=== PATIENT | female | born 1985 | race African-American/Black ===

== ENCOUNTER 2020-12-21 05:15 | Emergency (ER) | payer OTHER, SELFPAY ==
--- NOTE | 2020-12-21 | ECG_ITS ---
Test Reason : CP Blood Pressure : / mmHG Vent. Rate : 051 BPM Atrial Rate : 051 BPM P-R Int : 146 ms QRS Dur : 076 ms QT Int : 414 ms P-R-T Axes : 045 070 051 degrees QTc Int : 381 ms Sinus bradycardia with sinus arrhythmia Otherwise normal ECG No previous ECGs available Referred By: Generic ED Physician Electronically Signed By:LINK CASTRO
[2020-12-21 05:38] VITALS: BP 139/90; PULSE 57; RESP 18; TEMP 36.7; O2SAT 99; BMI 25.8
[2020-12-21 05:40] LABS: Basophils Percent Auto 0.3 % (0-2); Eosinophils Absolute Auto 0.3 X10*3/uL (0.0-0.4); Eosinophils Percent Auto 2.4 % (0-4); Hematocrit 41.8 % (37-47); Hemoglobin 14.2 g/dl (12.0-16.0); Imm Gran Abs Auto 0.04 X10*3/uL (0.00-0.03); Imm Gran Pct Auto 0.4 % (0.0-0.4); Lymphocytes Absolute Auto 4.1 X10*3/uL (1.2-4.9); Lymphocytes Percent Auto 37.6 % (20-40); MANUAL DIFF FLAG NO; Mean Corpuscular Volume 88.2 fL (80-98); Mean Platelet Volume 10.7 fL (9.4-12.3); Monocytes Absolute Auto 0.7 X10*3/uL (0.1-1.2); Monocytes Percent Auto 6.6 % (2-11); Neutrophils Absolute Auto 5.7 X10*3/uL (2.0-8.3); Neutrophils Percent Auto 52.7 % (45-73); Platelet Count 181 X10*3/uL (160-400); Red Blood Count 4.74 X10*6/uL (4.20-5.50); Red Cell Distribution Width 12.6 % (11.0-16.0); White Blood Count 10.8 X10*3/uL (4.8-10.8)
[2020-12-21 05:43] LABS: Glucose Urine UA NEG (NEG); Leukocyte Esterase Urine NEG (NEG); Nitrite Urine NEG (NEG); Specific Gravity - Urine >= 1.030 (1.005-1.025); Urine Blood NEG (NEG); Urine Ketones NEG (NEG); Urine Protein NEG (NEG-TRACE)
[2020-12-21 05:45] LABS: Appearance Urine CLEAR; Color Urine YELLOW; UPreg QC Valid YES; Urine Pregnancy NEGATIVE (NEGATIVE)
[2020-12-21 06:05] LABS: Troponin-I High Sensitivity < 3.5 ng/L (<3.5-17.0)
[2020-12-21 06:09] LABS: Alanine Aminotransferase 19 U/L (0-31); Albumin Level 4.3 g/dL (3.5-5.0); Alkaline Phosphatase 80 U/L (39-117); Anion Gap 12 (12-20); Aspartate Amino Transferase 17 U/L (5-31); Bilirubin Total 0.5 mg/dL (0.0-1.0); Blood Urea Nitrogen 11 mg/dL (9-16); Calcium 8.9 mg/dL (8.4-10.2); Carbon Dioxide 24 mmol/L (22-29); Chloride 108 mmol/L (96-108); Creatinine Clr Calc Pharmacy 108.6; Estimated Glomerular Filt Rate > 60; Glucose Random 88 mg/dL (60-115); Potassium 3.8 mmol/L (3.3-5.1); Sodium 140 mmol/L (135-145); Total Protein 6.5 g/dL (6.5-8.0)
== END 2020-12-21 07:18 | disposition left against medical advice (07) ==
PROVIDERS: Emergency Provider Emergency Medicine; PCP Nurse Practitioner Family
DX: R07.9 Chest pain, unspecified (principal)
CPT/HCPCS: 36415; 80053; 81003; 81025; 84484; 85025; 93005; 99283

== ENCOUNTER 2020-12-21 16:45 | Emergency (ER) | payer OTHER, SELFPAY ==
[2020-12-21 16:52] VITALS: BP 147/81; PULSE 68; RESP 20; TEMP 36.9; O2SAT 100; BMI 25.8
--- NOTE | 2020-12-21 16:56 | ECG_ITS ---
Test Reason : CP Blood Pressure : / mmHG Vent. Rate : 060 BPM Atrial Rate : 060 BPM P-R Int : 130 ms QRS Dur : 074 ms QT Int : 408 ms P-R-T Axes : 049 060 047 degrees QTc Int : 408 ms Normal sinus rhythm Normal ECG When compared with ECG of 21-DEC-2020 05:23, No significant change was found Referred By: Generic ED Physician Electronically Signed By:LINK CASTRO
[2020-12-21 18:00] LABS: MANUAL DIFF FLAG NO
[2020-12-21 18:04] LABS: Basophils Percent Auto 0.3 % (0-2); Eosinophils Absolute Auto 0.1 X10*3/uL (0.0-0.4); Eosinophils Percent Auto 1.2 % (0-4); Hematocrit 43.7 % (37-47); Hemoglobin 14.5 g/dl (12.0-16.0); Imm Gran Abs Auto 0.03 X10*3/uL (0.00-0.03); Imm Gran Pct Auto 0.3 % (0.0-0.4); Lymphocytes Absolute Auto 2.4 X10*3/uL (1.2-4.9); Lymphocytes Percent Auto 24.1 % (20-40); Mean Corpuscular HGB Conc 33.2 g/dl (31.0-35.0); Mean Corpuscular Hemoglobin 29.3 pg (27.0-33.0); Mean Corpuscular Volume 88.3 fL (80-98); Mean Platelet Volume 10.8 fL (9.4-12.3); Monocytes Absolute Auto 0.4 X10*3/uL (0.1-1.2); Monocytes Percent Auto 3.6 % (2-11); Neutrophils Percent Auto 70.5 % (45-73); Platelet Count 208 X10*3/uL (160-400); Red Blood Count 4.95 X10*6/uL (4.20-5.50); Red Cell Distribution Width 12.7 % (11.0-16.0); White Blood Count 9.9 X10*3/uL (4.8-10.8)
[2020-12-21 18:32] LABS: Anion Gap 14 (12-20); Blood Urea Nitrogen 10 mg/dL (9-16); Calcium 9.3 mg/dL (8.4-10.2); Carbon Dioxide 27 mmol/L (22-29); Chloride 105 mmol/L (96-108); Creatinine Clr Calc Pharmacy 101.7; Estimated Glomerular Filt Rate > 60; Glucose Random 88 mg/dL (60-115); Potassium 3.6 mmol/L (3.3-5.1); Sodium 142 mmol/L (135-145)
[2020-12-21 18:41] LABS: Troponin-I High Sensitivity < 3.5 ng/L (<3.5-17.0)
--- NOTE | 2020-12-21 19:02 | ED.CHESTPAIN ---
HPI - Chest Pain General Chief Complaint: Chest Pain Stated Complaint: chest pain Time Seen by Provider: 12/21/20 18:57 Source: patient Mode of arrival: ambulatory Limitations: no limitations History of Present Illness HPI narrative: Patient smokes cocaine for long time was here at 05:00 for the chest pain mostly on the right side troponin was negative comes back again as she called her doctor and asked to go to the hospital she still have the pain on the right side which increases on movement and palpation denies any shortness of breath no cough no fever no chills Related Data Previous Rx's Medication Instructions Recorded ibuprofen 600 mg PO Q6H PRN #20 tab 12/21/20 Allergies Allergy/AdvReac Type Severity Reaction Status Date / Time No Known Allergies Allergy Unverified 03/26/20 17:12 Review of Systems Review of Systems: Yes all other systems are reviewed and are negative [facility] Social History Social History Alcohol intake: never Patient Tobacco Use Status: Tobacco use Unknown Use of substances other than those prescribed or required for medical reasons: Unknown Advance Directives: No Advance Directives Information Provided: No Patient : No Physical Exam Vital Signs: Vital Signs: Last Vital Signs Temp 98.5 F 12/21/20 19:14 Pulse 71 12/21/20 19:14 Resp 16 12/21/20 19:14 BP 132/76 12/21/20 19:14 Pulse Ox 100 12/21/20 19:14 Body Mass Index 25.8 Appearance: Alert. Oriented X3. No acute distress. Eyes: PERRLA, No Nystagmus ENT: Pharynx normal. Oral Mucosa moist Neck: Normal inspection. Neck supple. CVS: Normal heart rate and rhythm. Pulses normal. Tender right 2nd toe costal space Respiratory: No respiratory distress. Equal air entry bilateral, no wheezing/rales/rhonchi Abdomen: Soft and nontender. Bowel sounds are present, no mass palpable, no CVA tenderness Skin: Skin warm and dry. Normal skin color. Normal skin turgor. Extremities: No lower extremity edema. No calf tenderness Neuro: Oriented X 3. No motor deficit. No sensory deficit MDM - Chest Pain MDM Narrative Medical decision making narrative: Patient with local tenderness right 2nd intercostal space 2 sets of troponin negative EKG normal unlikely ischemic will send patient home on ibuprofen Medical Records Data Attestation: I reviewed the patient's medical records. Lab Data Attestation: I reviewed the patient's lab results. Result diagrams: 12/21/20 17:33 12/21/20 17:33 Labs: Lab Results 12/21/20 12/21/20 12/21/20 Range/Units 17:33 17:33 17:34 WBC 9.9 (4.8-10.8) X10*3/uL RBC 4.95 (4.20-5.50) X10*6/uL Hgb 14.5 (12.0-16.0) g/dl Hct 43.7 (37-47) % MCV 88.3 (80-98) fL MCH 29.3 (27.0-33.0) pg MCHC 33.2 (31.0-35.0) g/dl RDW 12.7 (11.0-16.0) % Plt Count 208 (160-400) X10*3/uL MPV 10.8 (9.4-12.3) fL Immature Gran % (Auto) 0.3 (0.0-0.4) % Neut % (Auto) 70.5 (45-73) % Lymph % (Auto) 24.1 (20-40) % Russell % (Auto) 3.6 (2-11) % Eos % (Auto) 1.2 (0-4) % Baso % (Auto) 0.3 (0-2) % Lymph # (Auto) 2.4 (1.2-4.9) X10*3/uL Russell # (Auto) 0.4 (0.1-1.2) X10*3/uL Eos # (Auto) 0.1 (0.0-0.4) X10*3/uL Baso # (Auto) 0.0 (0.0-0.2) X10*3/uL Abs Immat Gran (auto) 0.03 (0.00-0.03) X10*3/uL Absolute Neuts (auto) 7.0 (2.0-8.3) X10*3/uL Absolute Nucleated RBC 0.000 (0.0-0.012) X10*3/uL Nucleated RBC % (auto) 0.0 (0.0-0.2) /100WBC Sodium 142 (135-145) mmol/L Potassium 3.6 (3.3-5.1) mmol/L Chloride 105 (96-108) mmol/L Carbon Dioxide 27 (22-29) mmol/L Anion Gap 14 (12-20) BUN 10 (9-16) mg/dL Creatinine 0.78 (0.5-1.4) mg/dL Estim Creat Clear Calc 101.7 Estimated GFR > 60 Random Glucose 88 (60-115) mg/dL Calcium 9.3 (8.4-10.2) mg/dL Troponin I High Sens < 3.5 (<3.5-17.0) ng/L ECG Data ECG #1: Attestation: I personally reviewed and interpreted this ECG as follows: Interpretation: Normal sinus rhythm heart rate 60 beats per minute no acute ST T wave changes impression normal EKG Discharge Plan Discharge Clinical Impression: Costalchondritis Patient Disposition: Home, Self-Care Instructions: Costochondritis (ED) Additional Instructions: Stop using cocaine Ibuprofen for pain Prescriptions: New ibuprofen 600 mg tablet 600 mg PO Q6H PRN (Reason: pain) Qty: 20 RF: 0 Interventions: ED Discharge Assessment Last Done: 12/21/20 19:15 Discharge Date/Time: 12/21/20 19:15 Print Language: Mongolian
[2020-12-21 19:14] VITALS: BP 132/76; PULSE 71; RESP 16; TEMP 36.9; O2SAT 100
== END 2020-12-21 19:15 | disposition home or self-care (01) ==
PROVIDERS: Emergency Provider Internal Medicine; PCP Nurse Practitioner Family
DX: M94.0 Chondrocostal junction syndrome [Tietze] (principal); F14.90 Cocaine use, unspecified, uncomplicated
CPT/HCPCS: 36415; 80048; 84484; 85025; 93005; 99283; 99284

== ENCOUNTER 2021-03-16 08:15 | Outpatient (RCR) | payer OTHER, SELFPAY ==
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
[2021-03-09 13:10] VITALS: BMI 25.4
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
--- NOTE | 2021-03-11 08:24 | PC.NURSE ---
I spoke with the client this morning. She has an appointment today and will be back tomorrow.
--- NOTE | 2021-03-11 14:47 | PC.NURSE ---
Case opened in treatment team
--- NOTE | 2021-03-12 14:30 | PC.NURSE ---
Called patient to review her treatment plan with her. Patient did not answer her phone. Left a message for patient to call me back.
--- NOTE | 2021-03-17 13:16 | PC.NURSE ---
The client called out because she had an appointment with her son this morning.
--- NOTE | 2021-03-18 08:07 | PC.NURSE ---
The client called to inform us that she will not be returning to [facility]. She explains that she has a multiple appointments that she has to take her children to and she is returning to work. She has called [facility] for a therapist and does not want to continue on medication.
== END 2021-03-18 08:10 | disposition home or self-care (01) ==
LOC: HO.PHPA 08:15
PROVIDERS: Visit Provider Psychiatry & Neurology Psychiatry
DX: F33.1 Major depressive disorder, recurrent, moderate (principal); F43.10 Post-traumatic stress disorder, unspecified; F41.1 Generalized anxiety disorder
CPT/HCPCS: 90853

== ENCOUNTER 2023-03-10 17:11 | Emergency (ER) | payer OTHER, SELFPAY ==
[2023-03-10] VITALS (8 sets, daily range): BP systolic 135–179; BP diastolic 80–113; PULSE 97–125; RESP 18–26; TEMP 36.8; O2SAT 95–99; BMI 25.8
--- NOTE | ~2023-03-10 | XR_ITS ---
EXAMINATION: XR CHEST CLINICAL INFORMATION: Shortness of breath, cough COMPARISON: X-ray 01/19/2014 TECHNIQUE: 2 views of the chest were obtained. FINDINGS: The cardiomediastinal silhouette is within normal limits. The lungs are well expanded. There is no focal consolidation, edema, or effusion. No pneumothorax. No acute osseous abnormality. XR/XR chest 2V IMPRESSION: No evidence of focal consolidation.
--- NOTE | 2023-03-10 17:31 | ED.ASTHMA ---
HPI - Asthma General Chief Complaint: Asthma Stated Complaint: Asthma Time Seen by Provider: 03/10/23 17:43 Source: patient Mode of arrival: ambulatory Limitations: no limitations History of Present Illness HPI Narrative: 37-year-old female with history of asthma, using albuterol as needed, and substance use disorder presents to the ER today for 1 day history of cough and shortness of breath with wheezing. Reports her last exacerbation was last winter. Reports cough started last night and then worsened this morning. Reports headache, intermittent chest and back pain, shortness of breath, sweats, chills, nausea. States headache began this morning. Reports that while en route to the hospital, vision began going black and thought she was going to faint. Denies sick contacts, sinus pressure, loss of vision, sore throat, nasal congestion, abdominal pain, vomiting, diarrhea, body aches. 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 Took a COVID test that was negative this morning. Has used 3 albuterol inhaler without relief today. Has also been taking ibuprofen and Robitussin for symptoms. Smokes 1/2 ppd cigarettes and uses cocaine daily. MD complaint: asthma attack Onset (ago): day(s) (1) Severity: moderate Context: recent URI Associated symptoms: dry cough Asthma History: adult onset Treatments Prior to Arrival: inhaled bronchodilator Related Data Current Asthma Therapy: inhaled bronchodilator Home Medications Medication Instructions Recorded Confirmed albuterol sulfate 90 mcg/actuation 2 puff inhalation Q4H PRN 03/09/21 12/16/21 aerosol inhaler Shortness Of Breath budesonide 180 mcg/actuation 1 inh inhalation BID 03/09/21 12/16/21 breath activated powder inhaler (Pulmicort Flexhaler) Previous Rx's Medication Instructions Recorded ibuprofen 600 mg tablet 600 mg PO Q6H PRN pain #20 tabs 12/21/20 prochlorperazine maleate 10 mg 10 mg PO BID-TID nausea and 12/16/21 tablet vomiting 3 days #9 tabs albuterol sulfate 90 mcg/actuation 2 puff inhalation Q4-6H PRN 03/10/23 aerosol inhaler shortness of breath or wheezing #8.5 grams azithromycin 250 mg tablet See Rx Instructions PO .COMPLEX #6 03/10/23 (Zithromax Z-Jose) tabs benzonatate 100 mg capsule 100 mg PO TID PRN cough #20 caps 03/10/23 prednisone 20 mg tablet 40 mg PO DAILY #10 tabs 03/10/23 Allergies Allergy/AdvReac Type Severity Reaction Status Date / Time No Known Allergies Allergy Unverified 12/16/21 09:18 Review of Systems Review of Systems: Yes all other systems are reviewed and are negative [facility] Past Medical History Medical History Asthma History of migraine History of pre-eclampsia Social History Social History Household Members: Children Alcohol intake: never Patient Tobacco Use Status: Current everyday Tobacco user Tobacco use type: Cigarette Cigarettes Per Day: 5 Years Smoked: started 2 years ago Advance Directives: No Advance Directives Information Provided: Yes Physical Exam Vital Signs: Vital Signs: Last Vital Signs Temp 98.3 F 03/10/23 17:30 Pulse 125 H 03/10/23 20:52 Resp 20 03/10/23 20:52 BP 160/113 H 03/10/23 20:52 Pulse Ox 97 03/10/23 20:52 O2 Del Method Room Air 03/10/23 20:52 BMI result Body Mass Index 25.8 Appearance: Alert. Oriented X3. No acute distress. Head: normocephalic, atraumatic. Eyes: Pupils equal, round and reactive to light. ENT: Pharynx normal. No tonsillar swelling or exudate. Neck: Normal inspection. Neck supple. CVS: Normal heart rate and rhythm. Pulses normal. Respiratory: No respiratory distress. Breath sounds with diffuse inspiratory and expiratory wheezes throughout, able to speak in complete sentences Abdomen: Soft and nontender. +BS x4 Skin: Skin warm and dry. Normal skin color. Normal skin turgor. No rashes. Extremities: No lower extremity edema. No joint swelling. Neuro/psych: Oriented X 3. No motor deficit. No sensory deficit. CN II-XII intact. Normal speech and cognition. Course Course Course Narrative: This is an RME: Additional HPI, ROS, PE not included below will be deferred to primary provider. This is a [id number]-female, with a hx of asthma, PTSD, presenting to the emergency department with a complaint of cough, shortness of breath, and wheezing. She has used 3 nebulizers without relief. Inspiratory and expiratory wheezes throughout all lung ramirez. Vital signs stable. Given sound of lungs, brought patient back to fast track to receive updraft and solu-medrol Plan: CXR, solu-medrol 60mg IM, Duo-neb, viral swabs Reevaluation(s) Reevaluation #1: improved aeration after 1st neb, speaking in complete sentences but has some inspiration wheezes that persist. HR 80-100. will give albuterol 5mg and reassess signed out to rosemarie jensen who will re-evalate Time: 18:51 Reevaluation #2: Patient re-evaluated states that her breathing is now worsening again, lungs with inspiratory and expiratory wheezes heard throughout all lung ramirez. Patient tachycardic in the 120 fives 130s. Patient has no chest pain or shortness of breath. Tachycardia is likely due to receiving multiple nebulizers. Will treat patient with magnesium 2 g and 1 L of IV fluids, basic labs also ordered. Sign out given to my colleague, Ganesh Ortega PA-C pending labs, re-evaluation after receiving IV fluids and magnesium. Time: 20:57 Reevaluation #3: Patient received in sign-out at change of shift pending labs and re-evaluation. The patient reports that she feels much better. She is still somewhat wheezy on exam. The patient states that she has plenty of albuterol at home. We will discharge her with additional prednisone and she was given return precautions. The patient's potassium was slightly low at 3.0 which could be partially did the mandibular all she has received. She is given 1 dose of potassium 40 mEq Time: 00:15 Medications Administered Discontinued Medications Generic Name Dose Route Start Last Admin Trade Name Freq PRN Reason Stop Dose Admin Albuterol Sulfate 5 mg 03/10/23 18:45 03/10/23 18:56 Albuterol Sulfate (0.083%) 2.5 Mg/3 Ml Vial.Neb INHALE 03/10/23 18:46 5 mg ONCE ONE Administration Albuterol Sulfate 7.5 mg/ 0 mg 03/10/23 17:33 03/10/23 17:53 Albuterol/Ipratropium 3 ml INHALE 03/10/23 17:34 2.5 each ONCE ONE Administration Magnesium Sulfate 2 gm in 50 mls @ 25 mls/hr 03/10/23 20:55 03/10/23 21:22 Magnesium Sulfate/H2o IV 03/10/23 22:54 25 mls/hr ONCE ONE Administration Sodium Chloride 1,000 mls @ 999 mls/hr 03/10/23 20:57 03/10/23 22:59 Ns IV 03/10/23 21:57 Infused .Q1H1M ONE Infusion Ibuprofen 600 mg 03/10/23 18:45 03/10/23 19:03 Ibuprofen 600 Mg Tablet PO 03/10/23 18:46 600 mg ONCE ONE Administration Methylprednisolone Sodium Succinate 60 mg 03/10/23 17:33 03/10/23 18:38 Methylprednisolone Sod Succ 125 Mg/2 Ml Vial IM 03/10/23 17:34 60 mg ONCE ONE Administration Medical Decision Making Medical Decision Making MDM Narrative: 37-year-old female with history of asthma and substance use presents to ER with exacerbation of asthma. Reports 1 day history of worsening cough and shortness of breath, not relieved by albuterol nebulizers at home. On exam, there is bilateral expiratory wheezing throughout. She is mildly tachypneic, but is able to speak in complete sentences. Cough is wet-sounding. Patient received duo-neb, that she responded well to. some inspiratory wheezes persist so repeat nebulizer treatment. Chest X-ray within normal limits. Viral respiratory panel pending. Anticipate she will be she will be safe for discharge with short course of oral steroids. Patient should follow up with PCP to discuss extermination supervisor management of asthma. Differential Diagnosis Differential Diagnoses: The differential diagnosis associated with the presentation includes Asthma exacerbation, COPD exacerbation, pneumonitis 2/2 cocaine, pneumothorax, pulmonary embolism, pneumonia, COVID, upper respiratory illness Admission/Observation Consideration of admission/observation: Escalation of care including admission/observation considered required multiple nebs, considered obs Lab Data [facility] Lab Attestation statement: I reviewed the patient's lab results. 03/10/23 21:27 03/10/23 21:27 Labs: Lab Results 03/10/23 03/10/23 03/10/23 Range/Units 18:01 21:27 21:27 WBC 14.2 H (4.8-10.8) X10*3/uL RBC 4.99 (4.20-5.50) X10*6/uL Hgb 14.9 (12.0-16.0) g/dl Hct 42.5 (37.0-47.0) % MCV 85.2 (80.0-98.0) fL MCH 29.9 (27.0-33.0) pg MCHC 35.1 H (31.0-35.0) g/dl RDW 12.5 (11.0-16.0) % Plt Count 168 (160-400) X10*3/uL MPV 10.5 (9.4-12.3) fL Immature Gran % (Auto) 0.4 (0.0-0.4) % Neut % (Auto) 94.1 H (45-73) % Lymph % (Auto) 4.0 L (20-40) % Candler % (Auto) 1.3 L (2-11) % Eos % (Auto) 0.1 (0-4) % Baso % (Auto) 0.1 (0-2) % Lymph # (Auto) 0.6 L (1.2-4.9) X10*3/uL Candler # (Auto) 0.2 (0.1-1.2) X10*3/uL Eos # (Auto) 0.0 (0.0-0.4) X10*3/uL Baso # (Auto) 0.0 (0.0-0.2) X10*3/uL Abs Immat Gran (auto) 0.05 H (0.00-0.03) X10*3/uL Absolute Neuts (auto) 13.3 H (2.0-8.3) x10*3/uL Absolute Nucleated RBC 0.000 (0.0-0.012) X10*3/uL Nucleated RBC % (auto) 0.0 (0.0-0.2) /100WBC Smear Tech's Comments VERIFIED Sodium 138 (135-145) mmol/L Potassium 3.0 L (3.3-5.1) mmol/L Chloride 104 (96-108) mmol/L Carbon Dioxide 20 L (22-29) mmol/L Anion Gap 17 (12-20) BUN 9 (9-16) mg/dL Creatinine 0.72 (0.5-1.4) mg/dL Estim Creat Clear Calc 108.0 Estimated GFR > 60 Random Glucose 150 H (60-115) mg/dL Calcium 9.4 (8.4-10.2) mg/dL Total Bilirubin 0.4 (0.0-1.0) mg/dL Direct Bilirubin 0.2 (0.0-0.5) mg/dL AST 14 (5-31) U/L ALT 12 (0-31) U/L Alkaline Phosphatase 79 (39-117) U/L Total Protein 7.1 (6.5-8.0) g/dL Albumin 4.4 (3.5-5.0) g/dL Influenza Type A (PCR) NEGATIVE (Negative) Influenza Type B (PCR) NEGATIVE (Negative) RSV RNA Qual (PCR) NEGATIVE (Negative) SARS-CoV-2 RNA (RT-PCR) NEGATIVE (Negative) Independent Interpretation I performed an independent interpretation of an: Plain X-Ray Interpretation: clear lungs no PNA Radiology Impression Discussion of test interpretation with radiology: I have reviewed the radiologist's reading. Radiologist Impression: EXAMINATION: XR CHEST CLINICAL INFORMATION: Shortness of breath, cough COMPARISON: X-ray 01/19/2014 TECHNIQUE: 2 views of the chest were obtained. FINDINGS: The cardiomediastinal silhouette is within normal limits. The lungs are well expanded. There is no foca he read aboutl consolidation, edema, or effusion. No pneumothorax. No acute osseous abnormality. XR/XR chest 2V IMPRESSION: No evidence of focal consolidation. External Record Review External record reviewed: Outpatient record and Prior outpatient labs Prescription Management I considered prescription management with: Pain Medication and Antibiotic Chronic Conditions Patient?s care impacted by: Other (asthma, cocaine use) Critical Care Time Critical Care Time Critical Care Time: Yes Total Critical Care Time: 36 Attestation: I have personally provided critical care time exclusive of time spent on separately billable procedures. Time includes review of lab data, radiology results, discussion with consultants, and monitoring for potential decompensation. Intervention performed as documented. Discharge Plan Discharge Clinical Impression: Asthma with acute exacerbation Patient Disposition: Home, Self-Care Instructions: Asthma (DC) Additional Instructions: Your chest x-ray did not show any evidence of pneumonia. You tested negative for COVID, flu and RSV. You may have another viral process which is causing your asthma to flare up. Take all of the medications as prescribed. Use your albuterol inhaler every few hours as needed for shortness of breath and wheezing. Rest and drink plenty of fluids. Recommend following up with pulmonology for further evaluation and treatment. Call for an appointment. Name and number below. If you develop new or worsening symptoms call 911 or come back to the ER for further evaluation. Prescriptions: New azithromycin [Zithromax Z-Jose] 250 mg tablet See Rx Instructions .ROUTE .COMPLEX Qty: 6 0RF Rx Instructions: take 500 mg today (day 1), then 250 mg for 4 days (days 2-5) prednisone 20 mg tablet 40 mg PO DAILY Qty: 10 0RF albuterol sulfate 90 mcg/actuation HFA aerosol inhaler 2 puff inhalation Q4-6H PRN (Reason: shortness of breath or wheezing) Qty: 8.5 0RF benzonatate 100 mg capsule 100 mg PO TID PRN (Reason: cough) Qty: 20 0RF No Action ibuprofen 600 mg tablet 600 mg PO Q6H PRN (Reason: pain) Qty: 20 0RF albuterol sulfate 90 mcg/actuation Hfa Aerosol Inhaler 2 puff INHALATION Q4H PRN (Reason: Shortness Of Breath) Pulmicort Flexhaler 180 mcg/actuation Aerosol Powdr Breath Activated 1 inh INHALATION BID prochlorperazine maleate 10 mg tablet 10 mg PO BID-TID 3 Days Qty: 9 0RF Referrals: [facility] [place] [facility] [Provider Group] (asthma) Lesia Garcia NP [Primary Care Provider] -
[2023-03-10] MEDS: Albuterol Sulfate 7.5 MG, Albuterol/Iprat 2.5/0.5MG 3 ML 3 ML INHALE (17:53)
--- NOTE | 2023-03-10 18:21 | ED.ASTHMA ---
HPI - Asthma General Chief Complaint: Asthma Stated Complaint: Asthma Time Seen by Provider: 03/10/23 17:43 History of Present Illness HPI Narrative: 37-year-old female with history of asthma, using albuterol as needed, and substance use disorder presents to the ER today for 1 day history of cough and shortness of breath with wheezing. Reports her last exacerbation was last winter. Reports cough started last night and then worsened this morning. Reports headache, intermittent chest and back pain, shortness of breath, sweats, chills, nausea. States headache began this morning. Reports that while en route to the hospital, vision began going black and thought she was going to faint. Denies sick contacts, sinus pressure, loss of vision, sore throat, nasal congestion, abdominal pain, vomiting, diarrhea, body aches. 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 Took a COVID test that was negative this morning. Has used 3 albuterol nebs without relief today. Has also been taking ibuprofen and Robitussin for symptoms. Smokes 1/2 ppd cigarettes and uses cocaine daily. complaint: asthma attack , shortness of breath and wheezing Onset (ago): day(s) Severity: mild Context: smoke exposure Associated symptoms: productive cough and chest pain Treatments Prior to Arrival: inhaled bronchodilator Related Data Home Medications Medication Instructions Recorded Confirmed albuterol sulfate 90 mcg/actuation 2 puff inhalation Q4H PRN 03/09/21 12/16/21 aerosol inhaler Shortness Of Breath budesonide 180 mcg/actuation 1 inh inhalation BID 03/09/21 12/16/21 breath activated powder inhaler (Pulmicort Flexhaler) Previous Rx's Medication Instructions Recorded ibuprofen 600 mg tablet 600 mg PO Q6H PRN pain #20 tabs 12/21/20 prochlorperazine maleate 10 mg 10 mg PO BID-TID nausea and 12/16/21 tablet vomiting 3 days #9 tabs Allergies Allergy/AdvReac Type Severity Reaction Status Date / Time No Known Allergies Allergy Unverified 12/16/21 09:18 Review of Systems Review of Systems: Yes all other systems are reviewed and are negative PMFSH Past Medical History Medical History Asthma History of migraine History of pre-eclampsia Social History Social History Household Members: Children Alcohol intake: never Patient Tobacco Use Status: Current everyday Tobacco user Tobacco use type: Cigarette Cigarettes Per Day: 5 Years Smoked: started 2 years ago Advance Directives: No Advance Directives Information Provided: Yes Physical Exam Vital Signs: Vital Signs: Last Vital Signs Temp 98.3 F 03/10/23 17:30 Pulse 97 03/10/23 17:57 Resp 26 H 03/10/23 17:57 BP 179/100 H 03/10/23 17:43 Pulse Ox 97 03/10/23 17:43 O2 Del Method Room Air 03/10/23 17:43 BMI result Body Mass Index 25.8 Const: General: cooperative, alert and acute distress Orientation/consciousness: patient oriented x3 Resp: Effort & Inspection: able to speak in complete sentences, Actively coughing Quality: wet, tachypneic and symmetric chest movement Auscultation: wheezes inspiratory wheezes, lower bilaterally and upper bilaterally Cardio: Rate: regular rate Rhythm: regular rhythm Neuro: General: patient oriented x3 Medications Administered Discontinued Medications Generic Name Dose Route Start Last Admin Trade Name Freq PRN Reason Stop Dose Admin Albuterol Sulfate 7.5 mg/ 0 mg 03/10/23 17:33 03/10/23 17:53 Albuterol/Ipratropium 3 ml INHALE 03/10/23 17:34 2.5 each ONCE ONE Administration Medical Decision Making Medical Decision Making MDM Narrative: 37-year-old female with history of asthma and substance use presents to ER with exacerbation of asthma. Reports 1 day history of worsening cough and shortness of breath, not relieved by albuterol nebulizers at home. On exam, there is bilateral expiratory wheezing throughout. She is mildly tachypneic, but is able to speak in complete sentences. Cough is wet-sounding. Patient received duo-neb, that she responded well to. Chest X-ray within normal limits. Viral respiratory panel pending. When tachypnea resolves, and oxygen saturation has sustained well, she will be safe for discharge with short course of oral steroids. Patient should follow up with PCP to discuss intermediate management of asthma. Differential Diagnosis Asthma exacerbation, COPD exacerbation, pneumothorax, pulmonary embolism, pneumonia, COVID, upper respiratory illness Admission/Observation Consideration of admission/observation: Escalation of care including admission/observation considered Independent Interpretation I performed an independent interpretation of an: Plain X-Ray Interpretation: I have reviewed patient's chest X-ray and I agree with the radiologist's interpretation. Radiology Impression Discussion of test interpretation with radiology: I have reviewed the radiologist's reading. Discharge Plan Discharge Prescriptions: No Action ibuprofen 600 mg tablet 600 mg PO Q6H PRN (Reason: pain) Qty: 20 0RF albuterol sulfate 90 mcg/actuation Hfa Aerosol Inhaler 2 puff INHALATION Q4H PRN (Reason: Shortness Of Breath) Pulmicort Flexhaler 180 mcg/actuation Aerosol Powdr Breath Activated 1 inh INHALATION BID prochlorperazine maleate 10 mg tablet 10 mg PO BID-TID 3 Days Qty: 9 0RF
[2023-03-10] MEDS: methylPREDNISolone Sod Succ 125 MG/2 ML VIAL 60 MG IM (18:38)
[2023-03-10] MEDS: Albuterol Sulfate (0.083%) 2.5 MG/3 ML VIAL.NEB 5 MG INHALE (18:56)
[2023-03-10] MEDS: Ibuprofen 600 MG TABLET PO (19:03)
[2023-03-10 19:14] LABS: Influenza A PCR NEGATIVE (Negative); Influenza B PCR NEGATIVE (Negative); Resp Syncy Virus RNA Qual PCR NEGATIVE (Negative); SARS COV2 PCR INHOUSE NEGATIVE (Negative)
--- NOTE | 2023-03-10 20:51 | PC.NURSE ---
pt reported SOB , headache , HR 125, emesis x 3
[2023-03-10] MEDS: 0.9 % Sodium Chloride 1,000 ML 999 ML IV (21:16)
[2023-03-10] MEDS: Magnesium Sulfate/H2O 2 GM/50 ML PIGGYBACK IV (21:22)
[2023-03-10 21:33] LABS: Basophils Percent Auto 0.1 % (0-2); Eosinophils Percent Auto 0.1 % (0-4); Hematocrit 42.5 % (37.0-47.0); Hemoglobin 14.9 g/dl (12.0-16.0); Imm Gran Abs Auto 0.05 X10*3/uL (0.00-0.03); Imm Gran Pct Auto 0.4 % (0.0-0.4); Lymphocytes Absolute Auto 0.6 X10*3/uL (1.2-4.9); MANUAL DIFF FLAG SCAN; Mean Corpuscular HGB Conc 35.1 g/dl (31.0-35.0); Mean Corpuscular Hemoglobin 29.9 pg (27.0-33.0); Mean Corpuscular Volume 85.2 fL (80.0-98.0); Mean Platelet Volume 10.5 fL (9.4-12.3); Monocytes Absolute Auto 0.2 X10*3/uL (0.1-1.2); Monocytes Percent Auto 1.3 % (2-11); Neutrophils Absolute Auto 13.3 x10*3/uL (2.0-8.3); Neutrophils Percent Auto 94.1 % (45-73); Platelet Count 168 X10*3/uL (160-400); Red Blood Count 4.99 X10*6/uL (4.20-5.50); Red Cell Distribution Width 12.5 % (11.0-16.0); SCAN SMEAR FLAG 1; White Blood Count 14.2 X10*3/uL (4.8-10.8)
--- NOTE | 2023-03-10 21:43 | PC.NURSE ---
iv fluids and magnesium infusing , pt has frequent wet nonproductive cough
[2023-03-10 21:48] LABS: Alanine Aminotransferase 12 U/L (0-31); Albumin Level 4.4 g/dL (3.5-5.0); Alkaline Phosphatase 79 U/L (39-117); Anion Gap 17 (12-20); Aspartate Amino Transferase 14 U/L (5-31); Bilirubin Direct 0.2 mg/dL (0.0-0.5); Bilirubin Total 0.4 mg/dL (0.0-1.0); Blood Urea Nitrogen 9 mg/dL (9-16); Calcium 9.4 mg/dL (8.4-10.2); Carbon Dioxide 20 mmol/L (22-29); Chloride 104 mmol/L (96-108); Estimated Glomerular Filt Rate > 60; Glucose Random 150 mg/dL (60-115); Sodium 138 mmol/L (135-145); Total Protein 7.1 g/dL (6.5-8.0)
[2023-03-10 21:59] LABS: SLIDE REVIEW VERIFIED
[2023-03-11] MEDS: Potassium Chloride ER 20 MEQ TAB.ER.PRT 40 MEQ PO (00:21)
== END 2023-03-11 00:44 | disposition home or self-care (01) ==
PROVIDERS: Physician Assistant Medical; Emergency Provider Emergency Medicine; PCP Nurse Practitioner Family
DX: J45.901 Unspecified asthma with (acute) exacerbation (principal); R05.9 Cough, unspecified; M54.50 Low back pain, unspecified; R51.9 Headache, unspecified; R07.89 Other chest pain; F17.210 Nicotine dependence, cigarettes, uncomplicated; Z20.822 Contact with and (suspected) exposure to COVID-19; Z20.828 Contact with and (suspected) exposure to other viral communicable diseases; Z71.6 Tobacco abuse counseling; Z79.899 Other long term (current) drug therapy
CPT/HCPCS: 0241U; 36415; 71046; 80048; 80076; 85025; 94640; 96361; 96365; 96372; 99284; J2930; J3475

== ENCOUNTER 2024-01-18 21:03 | Emergency (ER) | payer OTHER, SELFPAY ==
[2024-01-18 21:15] VITALS: BP 146/86; PULSE 102; RESP 16; TEMP 36.9; O2SAT 95; BMI 24.2
--- NOTE | 2024-01-18 22:51 | ED_ITS ---
HPI - Animal Bite General Chief Complaint: Animal Bite Stated Complaint: dog bite Time Seen by Provider: 01/18/24 22:17 Source: patient Mode of arrival: ambulatory Limitations: no limitations History of Present Illness ED Provider: Dr. Monica Bates HPI narrative: Patient comes to the emergency room complaining of a dog bite to the right buttock, which occurred approximately 9 hours ago. Patient states that she was walking out of an apartment complex towards her car, a dog was walking around there, jumped on her and bit her on the buttock. Patient states that no claimed the dog. Seems that the dog was some kind of pit bull mix. Immunization status of the dog is unknown. Patient states that she has not sure if she is up-to-date with her tetanus shot. Related Data Home Medications ?Medication ?Instructions ?Recorded ?Confirmed albuterol sulfate 90 mcg/actuation 2 puff inhalation Q4H PRN 03/09/21 12/16/21 aerosol inhaler Shortness Of Breath budesonide 180 mcg/actuation 1 inh inhalation BID 03/09/21 12/16/21 breath activated powder inhaler (Pulmicort Flexhaler) Previous Rx's ?Medication ?Instructions ?Recorded ibuprofen 600 mg tablet 600 mg PO Q6H PRN pain #20 tabs 12/21/20 prochlorperazine maleate 10 mg 10 mg PO BID-TID nausea and 12/16/21 tablet vomiting 3 days #9 tabs albuterol sulfate 90 mcg/actuation 2 puff inhalation Q4-6H PRN 03/10/23 aerosol inhaler shortness of breath or wheezing #8.5 grams azithromycin 250 mg tablet See Rx Instructions PO .COMPLEX #6 03/10/23 (Zithromax Z-Jose) tabs benzonatate 100 mg capsule 100 mg PO TID PRN cough #20 caps 03/10/23 prednisone 20 mg tablet 40 mg (2 x 20 mg) PO DAILY #10 tabs 03/10/23 amoxicillin 500 mg-potassium 1 tab PO BID #14 tabs 01/18/24 clavulanate 125 mg tablet (Augmentin) ibuprofen 600 mg tablet 600 mg PO TID PRN fever or pain 01/18/24 #14 tabs Allergies Allergy/AdvReac Type Severity Reaction Status Date / Time No Known Allergies Allergy Verified 01/18/24 21:16 Review of Systems Review of Systems: Constitutional : No Weight loss, No Fever, No Chills, No Night Sweats, No Fatigue, No Malaise ENT/Mouth : No Hearing loss, No Ear Pain, No Nasal Congestion, No Sinus Pain, No Hoarseness, No sore throat, No Rhinorrhea, No Swallowing Difficulty Eyes: No Eye Pain, No Swelling, No Redness, No Foreign Body, No Discharge, No Vision Changes Cardiovascular : No Chest Pain, No SOB, No Dyspnea on Exertion, No Orthopnea, No Edema, No Palpitations Respiratory : No Cough, No Sputum, No Wheezing, No Smoke Exposure, No Dyspnea Gastrointestinal : No Nausea, No Vomiting, No Diarrhea, No Constipation, No abdominal Pain, No Hematochezia, No Melena Genitourinary : no irregular bleeding, No Dysuria, No Urinary Frequency, No Hematuria, No Urinary Incontinence, No Urgency, No Flank Pain, No Urinary Flow Changes, No Hesitancy Musculoskeletal : No joint pain, No Myalgias, No Joint Swelling Skin : Scratches and puncture wounds to the right buttock Neuro : No Weakness, No Numbness, No Paresthesias, No Loss of Consciousness, No Dizziness, No Headache Psych : No Anxiety/Panic, No Depression, No SI/HI/AH/VH, No Social Issues, Heme/Lymph: No Bruising, No Bleeding,No Lymphadenopathy Endocrine : No Polyuria, No Polydipsia, No Temperature Intolerance [facility] Past Medical History Medical History (Updated 01/18/24 @ 23:00 by Monica Bates MD) Dog bite History of migraine History of pre-eclampsia Asthma Social History Social History Household Members: Children Alcohol intake: never Patient Tobacco Use Status: Current everyday Tobacco user Tobacco use type: Cigarette Cigarettes Per Day: 5 Years Smoked: started 2 years ago Advance Directives: No Advance Directives Information Provided: No Physical Exam ED Vital Signs: Vital Signs - 24 hr 01/18/24 21:15 Temperature 98.4 F Pulse Rate 102 H Respiratory Rate 16 Blood Pressure 146/86 H Pulse Oximetry 95 Oxygen Delivery Method Room Air BMI result Body Mass Index 24.2 Const Other: Appearance: Alert. Oriented X3. No acute distress. Eyes: Pupils equal, round and reactive to light. ENT: Pharynx normal. Neck: Normal inspection. Neck supple. No lymph nodes noted. No crepitus CVS: Normal heart rate and rhythm. Pulses normal. Normal S1 and S2 Respiratory: No respiratory distress. Breath sounds normal. No Wheezing. No rales Abdomen: Soft and nontender. No rigidity. No distention. Skin: Patient has multiple scratches and to small puncture wounds to the right buttock, puncture wounds are very small, ecchymosis around the buttock Extremities: No lower extremity edema. No Lacerations. No Rash Neuro: Oriented X 3. No motor deficit. No sensory deficit. Moving all extremities. No slurred speech. CN 2 through 12 grossly intact Psych: calm, cooperative, normal affect Course Course Course Narrative: -I discussed with the patient that we do not know anything about the dog or its immunization status. I strongly recommend to get the rabies immunization series and Tdap +antibiotic. Patient agrees with plan Medical Decision Making Medical Decision Making MDM Narrative: -patient was given rabies immunoglobulin, rabies vaccine, Augmentin, Tdap -infusion center orders were followed, discussed with our community health worker -patient aware that she will need 3 more vaccines Discharge Plan Discharge Clinical Impression: Dog bite Patient Disposition: Home, Self-Care Instructions: Animal Bite (ED), Rabies (ED) Additional Instructions: Please make sure that you follow-up days instructions and report to your appointment for the rabies vaccines. Please follow-up with your primary care physician tomorrow. If you have any worsening or new symptoms, please return to the emergency room or call 911 Prescriptions: New amoxicillin-pot clavulanate [Augmentin] 500-125 mg tablet 1 tab PO BID Qty: 14 0RF ibuprofen 600 mg tablet 600 mg PO TID PRN (Reason: fever or pain) Qty: 14 0RF No Action ibuprofen 600 mg tablet 600 mg PO Q6H PRN (Reason: pain) Qty: 20 0RF albuterol sulfate 90 mcg/actuation Hfa Aerosol Inhaler 2 puff INHALATION Q4H PRN (Reason: Shortness Of Breath) Pulmicort Flexhaler 180 mcg/actuation Aerosol Powdr Breath Activated 1 inh INHALATION BID azithromycin [Zithromax Z-Jose] 250 mg tablet See Rx Instructions .ROUTE .COMPLEX Qty: 6 0RF Rx Instructions: take 500 mg today (day 1), then 250 mg for 4 days (days 2-5) prednisone 20 mg tablet 40 mg PO DAILY Qty: 10 0RF albuterol sulfate 90 mcg/actuation HFA aerosol inhaler 2 puff inhalation Q4-6H PRN (Reason: shortness of breath or wheezing) Qty: 8.5 0RF benzonatate 100 mg capsule 100 mg PO TID PRN (Reason: cough) Qty: 20 0RF prochlorperazine maleate 10 mg tablet 10 mg PO BID-TID 3 Days Qty: 9 0RF Print Language: [place]
[2024-01-18] MEDS: Diphth,Pertus(ACell),Tet Adult 0.5 ML SYRINGE IM (23:27)
[2024-01-18] MEDS: Rabies Vaccine, Human Diploid (Imovax) 1 ML VIAL IM (23:28)
[2024-01-18] MEDS: Rabies Immune Globulin/PF 900 UNIT/3 ML VIAL 1360.78 UNIT IM (23:29)
[2024-01-18] MEDS: Amoxicillin/Potassium Clav 875 MG TABLET PO (23:30)
[2024-01-19 00:57] VITALS: BP 136/82; PULSE 97; RESP 16; TEMP 36.9; O2SAT 97
== END 2024-01-19 00:10 | disposition home or self-care (01) ==
PROVIDERS: Emergency Provider Emergency Medicine; PCP Nurse Practitioner Family
DX: S31.815A Open bite of right buttock, initial encounter (principal); W54.0XXA Bitten by dog, initial encounter; Y93.9 Activity, unspecified; Y92.9 Unspecified place or not applicable; Y99.8 Other external cause status; F17.210 Nicotine dependence, cigarettes, uncomplicated; Z20.3 Contact with and (suspected) exposure to rabies; Z29.14 Encounter for prophylactic rabies immune globulin; Z79.899 Other long term (current) drug therapy; Z23 Encounter for immunization
CPT/HCPCS: 90375; 90471; 90675; 90715; 96372; 99284